=== PATIENT | male | born 1990 | race Caucasian/White ===

== ENCOUNTER 2018-09-11 10:47 | Day surgery (SDC) | payer OTHER ==
[2018-09-11] MEDS ORDERED: PROPOFOL 200 MG/20 ML VIAL As Ordered (11:09)
[2018-09-11] MEDS ORDERED: LIDOCAINE 2% INJ 100 MG/5 ML SDV (FOR ANES.) As Ordered (11:09)
[2018-09-11] MEDS ORDERED: fentaNYL 250 MCG/5 ML INJECTION (J3010) As Ordered ×2 (11:09→13:46)
[2018-09-11] MEDS ORDERED: ROCURONIUM BROMIDE 50 MG/5 ML VIAL As Ordered (11:09)
[2018-09-11] MEDS ORDERED: MIDAZOLAM INJ 2 MG/2 ML VIAL (J2250) As Ordered (11:10)
[2018-09-11] MEDS: LR 1,000 ML IV (11:42)
[2018-09-11] MEDS ORDERED: dexameTHASONE 4 MG/ML 1ML VIAL (J1100) As Ordered ×2 (13:12)
[2018-09-11] MEDS: BUPIVACAINE HCL 0.5% 10 ML VIAL As Ordered (13:27)
[2018-09-11] MEDS ORDERED: NEOSTIGMINE 10 MG/10 ML VIAL (J2710) As Ordered (13:49)
[2018-09-11] MEDS ORDERED: GLYCOPYRROLATE INJ 0.2 MG/ML 2 ML VIAL As Ordered (13:49)
[2018-09-11] MEDS ORDERED: fentaNYL 100 MCG/2 ML INJECTION (J3010) IV (14:30)
[2018-09-11] MEDS ORDERED: HYDROcodone/APAP LIQUID 7.5-325MG 15ML UDC (LORTAB ELIXIR) PO (14:30)
[2018-09-11] MEDS ORDERED: PERCOCET 5MG/325MG TAB PO (14:30)
[2018-09-11] MEDS: PERCOCET 5MG/325MG TAB PO (14:30)
[2018-09-11] MEDS ORDERED: ONDANSETRON 4MG/2ML VIAL (J2405) IV (14:30)
[2018-09-11] MEDS ORDERED: LR 1,000 ML IV (14:30)
[2018-09-11] MEDS ORDERED: IBUPROFEN 100 MG/5 ML SUSP UDC DYE FREE As Ordered (15:10)
[2018-09-11] MEDS: IBUPROFEN 100 MG/5 ML SUSP UDC DYE FREE PO (15:13)
== END 2018-09-11 15:55 | disposition home or self-care (01) ==
LOC: M SDC 10:47
DX: J35.01 Chronic tonsillitis (principal)
CPT/HCPCS: 42826